=== PATIENT | male | born 1985 | race Caucasian/White ===

== ENCOUNTER 2019-06-03 17:10 | Emergency (ER) | payer MEDICAID | END 2019-06-03 17:37 | disposition home or self-care (01) | LOC: FTE 17:10 → E/R 17:37 | DX: S80.261A Insect bite (nonvenomous), right knee, initial encounter (principal); L08.9 Local infection of the skin and subcutaneous tissue, unspecified; W57.XXXA Bitten or stung by nonvenomous insect and other nonvenomous arthropods, initial encounter; Y92.9 Unspecified place or not applicable | CPT/HCPCS: 99283; Z7502 ==